=== PATIENT | male | born 1980 | race Caucasian/White ===

== ENCOUNTER 2018-03-14 02:00 | Emergency (ER) | payer MEDICARE ==
--- NOTE | 2018-03-14 02:11 | ER Document Report ---
ED Cardiac - General Chief Complaint: Chest Pain Stated Complaint: CHEST PAIN Time Seen by Provider: 03/14/18 02:10 Notes: Patient is a 37-year-old male who presents with complaint of chest tightness and sharp pains in his chest and radiates into his jaw and arm. He says he feels a bit short of breath with it. Denies any history of PE or DVT. No leg pain or leg swelling. He says he has had similar symptoms in the past. He said 10 years ago he had a cardiac catheterization which showed normal coronary arteries and he was diagnosed with angina. He said he also had a similar presentation approximately 8 months ago says he was seen at this hospital even though we do not have record of it. He says he supposed a follow-up with Dr. Kingston in 1 month. He is) high cholesterol medication does not take it. He is on multiple psychiatric medications. He says he cannot take nitroglycerin bottoms out his blood pressure. He did take 325 mg of aspirin before calling the ambulance. Denies having any recent stress test. Does have family history of coronary disease. He has 2 grandparents who of MIs. Both of them had the first heart attacks in her 40s. His dad had an MO at age 64. Past Medical History - Social History Smoking Status: Current Every Day Smoker Frequency of alcohol use: None Drug Abuse: None Family History: Reviewed & Not Pertinent Review of Systems - Review of Systems Notes: My Normal Review Basic REVIEW OF SYSTEMS: CONSTITUTIONAL : Denies fever, chills, or sweats. Denies recent illness. EENT: Denies eye, ear, throat, or mouth pain or symptoms. Denies nasal or sinus congestion. CARDIOVASCULAR: Chest pain RESPIRATORY: Mild shortness of breath GASTROINTESTINAL: Denies abdominal pain. Denies nausea, vomiting, or diarrhea. Denies constipation. Last BM: MUSCULOSKELETAL: Denies neck or back pain or joint pain or swelling. SKIN: Denies rash or skin lesions. NEUROLOGICAL: Denies altered mental status or loss of consciousness. Denies headache. Denies weakness or paralysis or loss of use of either side. Denies problems with gait or speech. Denies sensory or motor loss. ALL OTHER SYSTEMS REVIEWED AND NEGATIVE. Physical Exam - Vital signs Vitals: Temp Pulse Resp BP Pulse Ox 98.5 F 89 18 113/78 93 03/14/18 02:01 03/14/18 02:01 03/14/18 02:01 03/14/18 02:01 03/14/18 02:01 - Notes Notes: General Appearance: Well nourished, alert, cooperative, no acute distress, mild obvious discomfort. Vitals: reviewed, See vital signs table. Head: no swelling or tenderness to the head Eyes: PERRL, EOMI, Conjuctiva clear Mouth: No decreasd moisture Lungs: No wheezing, No rales, No rhonci, No accessory muscle use, good air exchange bilaterally. Heart: Normal rate, Regular rythm, No murmur, no rub Chest wall: No reproducible pain palpation of chest wall. Exam: No pain to palpation of abdomen. Abdomen soft and nonrigid. Extremities: strength 5/5 in all extremities, good pulses in all extremities, no swelling or tenderness in the extremities, no edema. Skin: warm, dry, appropriate color, no rash Neuro: speech clear, oriented x 3, normal affect, responds appropriately to questions. Course - Re-evaluation Re-evalutation: 03/14/18 05:26 Patient has had recurrent chest pain throughout his stay. I did do a repeat EKG and his repeat EKG is negative. His heart enzymes are negative. Despite his negative workup I still feel he should stay in hospital because he has ongoing chest pain and he has a strong family history of MO as well as he is obese and has metabolic syndrome and has high cholesterol does not take medications for this. Patient is also a smoker. At times and patient is off oxygen his oxygen saturation would dip down to around 92%. Was I think has to do with his positioning bed and the fact that he is very obese with a short neck and he most likely has some form of pickwickian syndrome. Is trying to arrange for the patient be admitted when he informed me that he now wants to go home. I told him my concerns that the cardiac workup done here is not completely thorough and does not answer me that he cannot have a MRI in the next 24-48 hours. Informed him MIs can be fatal. Patient is understanding of this but says he still wants to go and follow-up with Dr. Kingston. I informed him to return to ER anytime as were happy to take care of him we want what is best form. I informed him to take 81 mg of aspirin every day. I informed him to call Dr. Kingston's office for seen the morning for follow-up. Patient agrees will be discharged home as he requests. Patient is awake and alert and oriented and answers all questions appropriately. He shows capacity to make his own decision I cannot hold him against his will. Dictation of this chart was performed using voice recognition software; therefore, there may be some unintended grammatical errors. - Vital Signs Vital signs: Temp Pulse Resp BP Pulse Ox 98.5 F 89 17 112/85 96 03/14/18 02:01 03/14/18 02:01 03/14/18 04:01 03/14/18 04:00 03/14/18 04:01 - Laboratory Result Diagrams: 03/14/18 01:30 03/14/18 01:30 Laboratory results interpreted by me: 03/14/18 01:30 WBC 16.5 H Absolute Neutrophils 8.5 H Absolute Lymphocytes 6.3 H - EKG Interpretation by Me Additional EKG results interpreted by me: 03/14/18 02:10 EKG is reviewed and interpreted by me. EKG shows sinus rhythm with rate of [address] segment elevation or depression. No ischemic T-wave inversions. DC interval, QRS duration, QTc intervals are within normal range. No old EKG available for comparison. 03/14/18 03:59 EKG is reviewed and interpreted by me. EKG shows honest rhythm with a rate of [address] segment elevation or depression. No ischemic T-wave inversions. DC interval, QRS duration, QTc intervals are within normal range. Discharge - Discharge Clinical Impression: Chest pain Qualifiers: Chest pain type: unspecified Qualified Code(s): R07.9 - Chest pain, unspecified Condition: Stable Disposition: HOME, SELF-CARE Additional Instructions: There is no way to determine whether or you will have a bad outcome within the next 24 hours and this is why we prefer you to stay. We respect your decision to leave. Even though you are leaving we are not upset or mad. We just want what is best for you and therefore we encourage you to come back anytime if you have any recurrence of your symptoms. Please call Dr. Kingston's office in the morning and inform them that you were seen in the ER and need very close follow up for your chest pain and further testing such as a stress test. Please return to the ER immediately if you have recurrent chest pain, difficulty breathing, or feel unwell. Please take 81mg of aspirin every day. Referrals: MUKUL KINGSTON MD [ACTIVE STAFF] - 03/15/18
[2018-03-14 02:32] LABS: ABSOLUTE BASOPHILS # (AUTO) 0.1 10^3/uL (0.0-0.2); ABSOLUTE EOSINOPHILS # (AUTO) 0.2 10^3/uL (0.0-0.6); ABSOLUTE LYMPHOCYTES (AUTO) 6.3 10^3/uL (0.5-4.7); ABSOLUTE MONOCYTES (AUTO) 1.4 10^3/uL (0.1-1.4); ABSOLUTE NEUT (AUTO) 8.5 10^3/uL (1.7-8.2); BASOPHILS % (AUTO) 0.5 % (0-2); HEMATOCRIT 46.9 % (37.9-51.0); HEMOGLOBIN 16.3 g/dL (13.5-17.0); LYMPHOCYTES % (AUTO) 38.3 % (13-45); MEAN CORPUSCULAR HGB CONC 34.8 g/dL (32.0-36.0); MEAN CORPUSCULAR VOLUME 89 fl (80-97); MONOCYTES % (AUTO) 8.6 % (3-13); PLATELET COUNT 282 10^3/uL (150-450); RED BLOOD COUNT 5.25 10^6/uL (4.35-5.55); SEGMENTED NEUTROPHILS % (AUTO) 51.6 % (42-78); TOTAL CELLS COUNTED % (AUTO) 100 %; WHITE BLOOD COUNT 16.5 10^3/uL (4.0-10.5)
[2018-03-14 02:51] LABS: ALANINE AMINOTRANSFERASE 44 U/L (21-72); ALBUMIN 4.2 g/dL (3.5-5.0); ALKALINE PHOSPHATASE 90 U/L (38-126); ANION GAP 14 (5-19); ASPARTATE AMINO TRANSFERASE 33 U/L (17-59); BILIRUBIN,DIRECT 0.4 mg/dL (0.0-0.4); BILIRUBIN,TOTAL 0.5 mg/dL (0.2-1.3); BLOOD UREA NITROGEN 12 mg/dL (7-20); CALCIUM 9.5 mg/dL (8.4-10.2); CARBON DIOXIDE 23 mmol/L (22-30); CHLORIDE 105 mmol/L (98-107); GLUCOSE 109 mg/dL (75-110); POTASSIUM 4.4 mmol/L (3.6-5.0); SODIUM 142.4 mmol/L (137-145); TOTAL PROTEIN 7.3 g/dL (6.3-8.2)
[2018-03-14] MEDS ORDERED: PROMETHAZINE HCL INJ 25 MG/1 ML VIAL IM ONE (03:16)
--- NOTE | 2018-03-14 03:27 | RADIOLOGY REPORT (SQ) ---
EXAM DESCRIPTION: XR CHEST 1 VIEW COMPLETED DATE/TME: 03/14/2018 02:21 CLINICAL HISTORY: 37 years Male, chest pain COMPARISON: None. NUMBER OF VIEWS/TECHNIQUE: 1/AP FINDINGS: Adequate lung volume, small atelectasis or scar of the left lower lung field, normal cardiac silhouette, and intact bony thorax. IMPRESSION: No acute cardiopulmonary findings.
[2018-03-14 04:11] VITALS: BP 112/85
--- NOTE | 2018-03-14 07:51 | EKG REPORT ---
SEVERITY:- NORMAL ECG - SINUS RHYTHM : Confirmed by: Car Lewis MD 14-Mar-2018 07:51:18
--- NOTE | 2018-03-14 07:51 | EKG REPORT ---
SEVERITY:- NORMAL ECG - SINUS RHYTHM : Confirmed by: Car Lewis MD 14-Mar-2018 07:51:26
== END 2018-03-14 04:19 | disposition home or self-care (01) ==
LOC: ER 02:00
DX: R07.9 Chest pain, unspecified (principal); F17.200 Nicotine dependence, unspecified, uncomplicated
CPT/HCPCS: 93005; 99285; 96372; 36415; 85025; 80053; 84484; 85379; 71045; 93010; J2550